=== PATIENT | female | born 1955 | race Two or more races ===

== ENCOUNTER 2021-01-14 13:17 | Emergency (ER) | payer MEDICARE, OTHER ==
[~2021-01-14] VITALS: Ht 165.1 cm; Wt 84.1 kg
[2021-01-14 13:32] VITALS: BP 132/72
[2021-01-14] MEDS ORDERED: BUSP10TA3 PO (13:33)
[2021-01-14] MEDS ORDERED: ALPR0.5T8 PO (13:33)
== END 2021-01-14 17:34 | disposition left against medical advice (07) ==
LOC: EMS 13:17
DX: J32.9 Chronic sinusitis, unspecified (principal); Z53.21 Procedure and treatment not carried out due to patient leaving prior to being seen by health care provider